=== PATIENT | male | born 1980 ===

== ENCOUNTER 2016-05-22 22:30 | Observation (INO) | payer OTHER ==
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
[2016-05-22 21:51] LABS: BASOPHILS 0.2 %; BASOPHILS ABSOLUTE 0.03 10/3/uL (0.0-0.16); EOSINOPHILS 0.1 %; EOSINOPHILS ABSOLUTE 0.01 10/3/uL (0.0-0.53); HEMATOCRIT 45.5 % (40.0-51.0); HEMOGLOBIN 15.6 g/dL (13.6-17.8); IMMATURE GRANULOCYTES 0.6 %; LYMPHOCYTES 12.1 %; LYMPHOCYTES ABSOLUTE 1.89 10/3/uL (0.67-4.30); MEAN CORPUS HGB CONC 34.3 g/dL (32.0-36.0); MEAN CORPUSCULAR HEMOGLOB 29.9 pg (26.0-34.0); MEAN CORPUSCULAR VOLUME 87.3 fL (80-100); MEAN PLATELET VOLUME 9.2 fL (9.2-13.0); MONOCYTES 4.6 %; MONOCYTES ABSOLUTE 0.72 10/3/uL (0.21-1.20); NEUTROPHILS 82.4 %; NEUTROPHILS ABSOLUTE 12.83 10/3/uL (2.02-8.40); PLATELET COUNT 359 10/3/uL (150-400); RED CELL COUNT 5.21 10/6/uL (4.7-6.1)
[2016-05-22 21:52] LABS: MANUAL DIFF NO %; WHITE BLOOD CELLS 15.6 10/3/uL (4.5-10.5)
[2016-05-22 22:03] LABS: PARTIAL THROMBO TIME 29.2 SEC (22.5-37.2)
[2016-05-22 22:04] LABS: PROTIME (NOT ORD) 13.4 SEC (12.0-14.5)
[2016-05-22 22:07] LABS: CALCIUM, SERUM 9.8 MG/DL (8.5-10.4); CHEST PAIN PROFILE TAT 0 Hrs 21 Mins; CHLORIDE, SERUM 105 MMOL/L (96-112); CO2 (CARBON DIOXIDE) 26 MMOL/L (24-34); CREATININE 0.94 MG/DL (0.70-1.30); GFR AFRICAN AMERICAN 120 ML/MIN (>=60); GFR NON AFRICAN AMERICAN 103 ML/MIN (>=60); GLUCOSE, SERUM 169 MG/DL (60-99); POTASSIUM, SERUM 4.5 MMOL/L (3.5-5.3); SODIUM, SERUM 140 MMOL/L (135-148); TROPONIN I <0.02 NG/ML (<0.05)
[2016-05-22 22:09] LABS: BUN (BLOOD UREA NITROGEN) 12 MG/DL (6-23)
[~2016-05-22 22:30] MED LIST: CLEAR EYE1 OPH; DIABET2.5 PO; FENESIN DM1 TAB PO; FLONASE NAS; GLUCPH PO; IBU-200200 MG PO; KETOTIFEN 0.035% OPH; LIPITOR20 PO; NOVOLOG SC; PRIN10 PO; Z-PAK PO; ZYRTEC ALLGY10 MG PO
[2016-05-23 02:04] LABS: D-DIMER QUANTITATIVE < 0.27 ug/mLFEU (< 0.50)
[2016-05-23] MEDS ORDERED: JANUVIA100 MG PO (09:58)
== END 2016-05-23 15:38 | disposition home or self-care (01) ==
LOC: ER 22:30 → CDU1 23:59 → CDU2 05-23 01:25
PROVIDERS: Specialist
DX: R07.2 Precordial pain (principal); I10 Essential (primary) hypertension; E78.2 Mixed hyperlipidemia; E11.9 Type 2 diabetes mellitus without complications; G47.33 Obstructive sleep apnea (adult) (pediatric); J30.2 Other seasonal allergic rhinitis; K21.9 Gastro-esophageal reflux disease without esophagitis; E66.01 Morbid (severe) obesity due to excess calories; J42 Unspecified chronic bronchitis; Z87.442 Personal history of urinary calculi; Z90.89 Acquired absence of other organs; Z79.899 Other long term (current) drug therapy; Z82.49 Family history of ischemic heart disease and other diseases of the circulatory system; Z83.6 Family history of other diseases of the respiratory system; Z80.1 Family history of malignant neoplasm of trachea, bronchus and lung; Z98.890 Other specified postprocedural states; Z68.39 Body mass index [BMI] 39.0-39.9, adult
CPT/HCPCS: 71020; 71275; 78452; 80048; 82962; 83735; 84484; 85025; 85379; 85610; 85730; 93005; 93017; 99285; A9270-GY; A9502; G0378; Q9967